=== PATIENT | male | born 1970 | race Caucasian/White ===

== ENCOUNTER 2018-05-14 21:57 | Emergency (ER) | payer SELFPAY ==
[~2018-05-14] VITALS: Wt 108.6 kg
[2018-05-14 22:21] VITALS: BP 120/69; PULSE 100
[2018-05-15] MEDS ORDERED: ONDANSETRON (ODT) 4 MG TAB ODT STA (03:25)
--- NOTE | 2018-05-15 03:25 | ERD ---
ER Documentation Chief Complaint Chief Complaint COUGH/ ST X'S 3 DAYS HPI This is a 48-year-old male presents to emerge department with complaints of throat pain, cough for 3 days. Stated that he feels like his tonsils are swollen. Denies headache, head injury, loss of consciousness, dizziness, neck pain, neck stiffness, difficulty swallowing, difficulty breathing lying flat, shoulder pain, chest pain, back pain, abdominal pain, nausea, vomiting, constipation, diarrhea, urinary symptoms, loss of bowel and bladder control, trauma, injury, falls, difficulty walking due to pain, numbness or tingling sensation, calf pain, recent travel, recent major surgery in the last 3 weeks, calf pain, recent long travel, recent exposure to any illness, recent antibiotic use in the last 3 months, fever, chills, seizures. Past medical history: Surgical history: Social: Denies smoking, use of alcoholic beverages, use of illegal drugs. ROS All systems reviewed and are negative except as per history of present illness. Medications Home Meds Active Scripts Loratadine* (Loratadine*) 10 Mg Tablet, 10 MG PO DAILY, #30 TAB Prov:EZIO GONZALEZ 05/15/18 Benzonatate* (Tessalon Perle*) 100 Mg Capsule, 100 MG PO Q8H PRN for COUGH, #15 CAP Prov:EZIO GONZALEZ 05/15/18 Prednisone* (Prednisone*) 20 Mg Tab, 60 MG PO DAILY for 4 Days, TAB Prov:EZIO GONZALEZ 05/15/18 Albuterol Sulfate* (Proair HFA*) 8.5 Gm Hfa.aer.ad, 2 PUFF INH Q4 PRN for WHEEZING, #1 INHALER Prov:EZIO GONZALEZ 05/15/18 Ibuprofen* (Motrin*) 800 Mg Tab, 800 MG PO Q6H PRN for PAIN AND OR ELEVATED TEMP, #30 TAB Prov:EZIO GONZALEZ 05/15/18 Ondansetron Hcl* (Zofran*) 4 Mg Tablet, 4 MG PO Q6H PRN for WHEEZING, #30 TAB Prov:EZIO GONZALEZ 05/15/18 Amoxicillin/Potassium Clav (Amox-Clav 875-125 mg Tablet) 875-125 mg Tab, 1 TAB PO BID for 10 Days, #20 TAB Prov:EZIO GONZALEZ 05/15/18 Allergies Allergies: Coded Allergies: No Known Allergy (Unverified , 05/14/18) Physical Exam Vitals Physical Exam Const: No acute distress. No facial swelling.. Head: Atraumatic Eyes: Normal Conjunctiva ENT: Normal External Ears, Nose and Mouth.Bilateral ears: TMs are erythematous. No bleeding. No discharge. No hearing loss. No mastoid tenderness. Nose: There is no frontal or maxillary sinus tenderness to palpation. Throat: Uvula is mildly swollen but in midline and nondisplaced. Tonsils are +2 bilaterally with redness and has exudates. Tongue is not swollen. Able to control tongue movement. Tolerating secretions. Patent airway. No drooling. Speaks full and clear sentences. No signs of airway obstruction. Neck: Full range of motion. No meningismus. No nuchal rigidity. No signs of meningeal irritation. Resp: Clear to auscultation bilaterally. No accessory muscle use in breathing. Cardio: Regular rate and rhythm, no murmurs Abd: Soft, non tender, non distended. Normal bowel sounds. No abdominal tenderness. Skin: No petechiae or rashes. Color appears normal for ethnicity. No skin tenting. No signs of severe dehydration. Back: No midline or flank tenderness Ext: No cyanosis, or edema Neur: Awake and alert. No neurological deficits. Psych: Normal Mood and Affect Results 24 hrs Current Medications Medications Dose Sig/Phuong Start Time Status Last (Trade) Ordered Route PRN Stop Time Admin Dose Reason Admin 125 mg ONCE ONCE 05/15/18 DC 05/15/18 Methylprednis IM 03:30 03:54 olone Sodium 05/15/18 03:31 Succinate (Solu-Medrol) Ceftriaxone 1 gm ONCE ONCE 05/15/18 DC 05/15/18 Sodium IM 03:30 03:54 (Rocephin) 05/15/18 03:31 Ondansetron 4 mg ONCE STAT 05/15/18 DC 05/15/18 HCl (Zofran ODT 03:25 03:54 Odt) 05/15/18 03:26 Procedures/MDM Over diagnostic test but patient and family member strongly refused. Stated that they do want to wait too long and that they just want a treatment. Diagnostic tests: Clinical exam. Treatment: Ceftriaxone IM. Solu-Medrol IM. Zofran p.o. Re-evaluation: Denies throat pain, throat tightness, chest tightness, difficult swallowing. No drooling. Able to control tongue movement. Tolerating liquids by mouth. No episode of emesis here in emergency department. Speaks full and clear sentences. No airway obstruction. No tripoding. Respirations even and unlabored. Lung sounds are clear to auscultation. No accessory muscle use in breathing. No neurological deficits. Stated that he feels much better at this time and that they are ready to go home. Differential diagnosis I have low suspicion for peritonsillar abscess, mastoiditis, meningitis, airway obstruction, angioedema, anaphylactic shock. Final diagnosis: Uvulitis. Exudative tonsillitis. Prescription: Augmentin. Motrin. Prednisone. Zofran. Tessalon Perles. Follow-up with PCP in the next 24-48 hours. Come back here in the emergency department for any new symptoms or any worsening symptoms. All questions and concerns were answered. Patient and family members verbalized understanding and agreed with plan of care. Hemodynamically stable on discharge. Departure Diagnosis: Primary Impression: Exudative tonsillitis Additional Impression: Uvulitis Condition: Stable Additional Instructions: Follow-up with PCP in the next 24-48 hours. Come back here in the emergency department for any new symptoms or any worsening symptoms. EZIO GONZALEZ May 15, 2018 03:25
[2018-05-15] MEDS ORDERED: CEFTRIAXONE 1 GM INJ IM ONE (03:30)
[2018-05-15] MEDS ORDERED: METHYLPREDNISOLONE 125 MG INJ IM ONE (03:30)
[2018-05-15] MEDS ORDERED: AMOX1TAB10 PO (04:07)
[2018-05-15] MEDS ORDERED: ONDA4TAB8 PO (04:07)
[2018-05-15] MEDS ORDERED: IBUP800T48 PO (04:08)
[2018-05-15] MEDS ORDERED: ALBU8.5H8 INH (04:08)
[2018-05-15] MEDS ORDERED: PRED20TA PO (04:09)
[2018-05-15] MEDS ORDERED: BENZ-6 PO (04:09)
[2018-05-15] MEDS ORDERED: LORA10TA3 PO (04:10)
== END 2018-05-15 04:57 | disposition home or self-care (01) ==
LOC: FTE 21:57
DX: J03.90 Acute tonsillitis, unspecified (principal); K12.2 Cellulitis and abscess of mouth
CPT/HCPCS: 96372; 99284; J0696; J2930